=== PATIENT | male | born 1960 | race Caucasian/White ===

== ENCOUNTER 2018-09-07 08:19 | Emergency (ER) | payer OTHER ==
[~2018-09-07] VITALS: Ht 172.7 cm; Wt 93.2 kg
[~2018-09-07 08:19] MED LIST: BIMA01SOL OU; OXYC-141 PO; PERC5TAB12 PO
[2018-09-07] MEDS ORDERED: XALA0.007 OU (08:28)
[2018-09-07] MEDS ORDERED: TIMO0.5S29 OU (08:28)
[2018-09-07] MEDS ORDERED: OXYMETAZOLINE NASAL SPRAY (AFRIN) ONE (08:30)
[2018-09-07] MEDS ORDERED: BACI500O8 TOP (09:59)
[2018-09-07 10:10] VITALS: BP 127/81
== END 2018-09-07 10:13 | disposition home or self-care (01) ==
LOC: M ED 08:19 → EDBD 08:19 → M ED 10:13
DX: R04.0 Epistaxis (principal); I10 Essential (primary) hypertension; Z88.0 Allergy status to penicillin; Z79.899 Other long term (current) drug therapy

== ENCOUNTER 2018-09-07 15:59 | Emergency (ER) | payer OTHER ==
[~2018-09-07] VITALS: Ht 172.7 cm; Wt 93.2 kg
[~2018-09-07 15:59] MED LIST changes: +BACI500O8 TOP; +TIMO0.5S29 OU; +XALA0.007 OU
[2018-09-07] MEDS ORDERED: TRANEXAMIC ACID 100 MG/ML 10ML VIAL IV ONE (16:15)
[2018-09-07 17:34] LABS: HEMATOCRIT 39.6 % (42.0-52.0); HEMOGLOBIN 13.5 g/dl (13.5-17.5); MEAN CORPUSCULAR HEMOGLOBIN 30.5 pg (27.0-33.0); MEAN CORPUSCULAR HGB CONC 34.1 g/dl (32.0-36.5); MEAN CORPUSCULAR VOLUME 89.6 fl (80.0-96.0); PLATELET COUNT, AUTOMATED 269 10^3/uL (150-450); RED BLOOD COUNT 4.42 10^6/uL (4.30-6.10); WHITE BLOOD COUNT 10.9 10^3/uL (4.0-10.0)
[2018-09-07] MEDS ORDERED: ACETAMINOPHEN 325 MG TAB PO ONE (19:00)
[2018-09-07 19:14] VITALS: BP 134/90
== END 2018-09-07 19:28 | disposition home or self-care (01) ==
LOC: M ED 15:59 → EDBD 15:59 → M ED 19:28
DX: R04.0 Epistaxis (principal); I10 Essential (primary) hypertension; Z88.0 Allergy status to penicillin; Z79.899 Other long term (current) drug therapy

== ENCOUNTER 2020-07-08 11:36 | Emergency (ER) | payer OTHER ==
[~2020-07-08] VITALS: Ht 172.7 cm; Wt 96.0 kg
--- NOTE | 2020-07-08 12:17 | REP ---
INDICATION: CHEST PAIN. COMPARISON: None. TECHNIQUE: AP portable seated chest FINDINGS: Lungs show some mild hyperinflation. Right lateral lung base shows some mild pleural thickening or fluid. There is some linear fibrotic change in the right lateral base. No dense consolidation with air bronchograms. The left lung was clear and without effusion. The heart, mediastinal and hilar contours are normal. The aorta and airway are intact. There is no free air under the diaphragm. Patient has undergone a prior ORIF of proximal right humeral fracture with plate and numerous screws in the proximal humeral shaft and head. IMPRESSION: Some right lateral inferior chest wall pleural thickening or fluid with some fibrotic changes in the right lateral base. No dense consolidation in the remainder of the right lung and the entire left lung clear without left effusion <Electronically signed by Arun Owens > 07/08/20 0473
--- NOTE | 2020-07-08 12:51 | REP ---
INDICATION: dizziness. COMPARISON: None. TECHNIQUE: Helical scanning is acquired. 5 mm axial images were reformatted. Coronal MPR images were generated. FINDINGS: Bone window settings demonstrate an intact bony calvarium. There is no evidence of skull fracture or incidental bony calvarial lesion. The visualized paranasal sinuses appear clear. No intraorbital abnormality is seen. On soft tissue window setting images; the lateral, third, and fourth ventricles are normal in size and position. Enamorado-white differentiation pattern is normal above and below the tentorium. There are is no evidence of intracranial hemorrhage. No mass, edema, infarction, or midline shift is seen. No extra-axial fluid collection is appreciated. Vascular calcification is noted in the distal vertebral and distal internal carotid arteries bilaterally. IMPRESSION: Vascular calcification noted. Otherwise negative CT study of the brain without contrast.. <Electronically signed by Jose M Su > 07/08/20 [id number]
[2020-07-08 13:31] LABS: BASO % 0.5 % (0.0-1.0); EOS # 0.1 10^3/uL (0.0-0.5); EOS % 1.7 % (0.0-3.0); HEMATOCRIT 46.8 % (42.0-52.0); HEMOGLOBIN 15.7 g/dl (13.5-17.5); MEAN CORPUSCULAR HEMOGLOBIN 29.7 pg (27.0-33.0); MEAN CORPUSCULAR HGB CONC 33.5 g/dl (32.0-36.5); MEAN CORPUSCULAR VOLUME 88.6 fl (80.0-96.0); MONO # 0.6 10^3/uL (0.0-0.8); MONO % 6.8 % (0.0-5.0); NEUTROPHILS # 5.3 10^3/uL (1.5-8.5); NEUTROPHILS % 65.6 % (36.0-66.0); PLATELET COUNT, AUTOMATED 253 10^3/uL (150-450); RED BLOOD COUNT 5.28 10^6/uL (4.30-6.10); WHITE BLOOD COUNT 8.1 10^3/uL (4.0-10.0)
[2020-07-08 14:05] LABS: ALBUMIN 4.3 GM/DL (3.2-5.2); BILIRUBIN,DIRECT 0.1 MG/DL (0.0-0.2); BILIRUBIN,TOTAL 0.9 MG/DL (0.2-1.0); THYROID STIMULATING HORMONE 1.49 uIU/ML (0.358-3.740)
[2020-07-08] MEDS ORDERED: ISOVUE-370 76% 100ML VIAL As Ordered ONE (15:57)
--- NOTE | 2020-07-08 17:31 | REPVR ---
PROCEDURE INFORMATION: Exam: CT Angiography Chest With Contrast Exam date and time: 07/08/2020 3:53 PM Age: 59 years old Clinical indication: Other: R/O pe TECHNIQUE: Imaging protocol: Computed tomographic angiography of the chest with intravenous contrast. Axial, coronal and sagittal reformatted images were created and reviewed. 3D rendering (Not supervised by radiologist): MIP and/or 3D reconstructed images were created by the technologist. Radiation optimization: All CT scans at this facility use at least one of these dose optimization techniques: automated exposure control; mA and/or kV adjustment per patient size (includes targeted exams where dose is matched to clinical indication); or iterative reconstruction. Contrast material: ISOVUE 370; Contrast volume: 75 ml; Contrast route: INTRAVENOUS (IV); COMPARISON: [place] PORTABLE CHEST X-RAY 07/08/2020 11:55 AM FINDINGS: Pulmonary arteries: Contrast opacification satisfactory. No intraluminal filling defect. Aorta: Unremarkable. No aneurysm or dissection. Lungs: Mild right apical paraseptal emphysematous change. Mild central peribronchial thickening, suggestive of airway inflammation. Linear/discoid stranding and groundglass at the lung bases, likely due to atelectasis and/or scarring. No consolidation. Calcified granuloma in the lingula. Pleural space: Unremarkable. No pneumothorax. No pleural effusion. Heart: Unremarkable. No cardiomegaly. No pericardial effusion. Lymph nodes: No pathologically enlarged lymph nodes. Bones/joints: No acute osseous abnormality. Osteopenia. Degenerative changes. Soft tissues: Unremarkable. IMPRESSION: 1. No CT evidence of pulmonary embolism. 2. Additional findings, as above. Electronically signed by: Srinivasa Astudillo On 07/08/2020 17:31:08 PM
[2020-07-08] MEDS ORDERED: LOSARTAN 50MG TABLET PO ONE (18:30)
[2020-07-08] MEDS ORDERED: VALSARTAN 80 MG TAB (DIOVAN) PO ONE (18:30)
[2020-07-08 18:31] VITALS: BP 144/77
[2020-07-08] MEDS ORDERED: VALS1TAB67 PO (18:43)
[2020-07-08 19:21] VITALS: BP 160/85
--- NOTE | 2020-07-09 00:48 | ECGEPIP ---
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
--- NOTE | 2020-07-09 00:57 | ECGEPIP ---
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
--- NOTE | 2020-07-09 01:02 | ECGEPIP ---
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
== END 2020-07-08 19:22 | disposition home or self-care (01) ==
LOC: M ED 11:36
DX: I10 Essential (primary) hypertension (principal); R55 Syncope and collapse; H40.9 Unspecified glaucoma; Z79.899 Other long term (current) drug therapy; Z88.0 Allergy status to penicillin
CPT/HCPCS: 36415; 70450; 71045; 71275; 80047; 80076; 83690; 83880; 84443; 84484; 85025; 93005; 93041; 94760; 99291; Q9967

== ENCOUNTER 2021-02-05 16:16 | Emergency (ER) | payer OTHER ==
[~2021-02-05] VITALS: Ht 172.7 cm; Wt 100.0 kg
[~2021-02-05 16:16] MED LIST changes: +VALS1TAB67 PO
[2021-02-05] MEDS ORDERED: ASPIRIN 81 MG CHEW TABLET PO ONE (16:45)
[2021-02-05 16:47] LABS: BASO # 0.1 10^3/uL (0.0-0.2); BASO % 0.9 % (0.0-1.0); EOS # 0.1 10^3/uL (0.0-0.5); EOS % 1.6 % (0.0-3.0); HEMOGLOBIN 15.3 g/dl (13.5-17.5); LYMPH # 2.8 10^3/uL (1.5-5.0); LYMPH % 31.7 % (24.0-44.0); MEAN CORPUSCULAR HEMOGLOBIN 30.5 pg (27.0-33.0); MEAN CORPUSCULAR VOLUME 89.8 fl (80.0-96.0); MONO # 0.7 10^3/uL (0.0-0.8); MONO % 8.1 % (2.0-8.0); NEUTROPHILS # 5.1 10^3/uL (1.5-8.5); NEUTROPHILS % 57.5 % (36.0-66.0); PLATELET COUNT, AUTOMATED 267 10^3/uL (150-450); RED BLOOD COUNT 5.01 10^6/uL (4.30-6.10); WHITE BLOOD COUNT 8.9 10^3/uL (4.0-10.0)
[2021-02-05] MEDS ORDERED: ISOVUE-370 76% 100ML VIAL As Ordered ONE (16:47)
--- NOTE | 2021-02-05 16:54 | REP ---
INDICATION: CHEST PAIN. COMPARISON: 07/08/2020. TECHNIQUE: Single portable AP view of the chest was performed. FINDINGS: Left lung is unchanged in appearance with no new infiltrate. The right lung again demonstrates moderate interstitial fibrotic change inferiorly. There may be some mild superimposed atelectasis or infiltrate in the right lung base. The heart is normal in size. The mediastinal silhouette is unchanged. There are degenerative changes of the spine. Metallic internal fixation is seen in the proximal right humerus. IMPRESSION: Chronic changes. Possible mild superimposed atelectasis or infiltrate right lung base. <Electronically signed by Yoel Enamorado > 02/05/21 [id number]
--- NOTE | 2021-02-05 17:08 | REP ---
INDICATION: ro pe chest pain COMPARISON: 07/08/2020 the latest prior also CT angiogram TECHNIQUE: CT angiography after the intravenous administration of 75 cc Isovue 370 attention pulmonary arteries. FINDINGS: There is excellent visualization of the pulmonary arterial vasculature. No focal filling defects are present that would be considered consistent with acute pulmonary emboli. There is no mediastinal or hilar adenopathy. There are no pleural or pericardial effusions. The imaged upper abdomen and imaged osseous structures are stable. Evaluation of the lung gallo shows stable chronic changes particularly affecting the right lung with stable curvilinear densities, pleuroparenchymal scarring, and small apical pleural blebs. Once again, there is an incidental calcification in the inferior lingula likely a granuloma possibly a hamartoma. No new abnormal lung field opacities have developed. IMPRESSION: Stable CT examination of the chest as described above. There is no evidence of pulmonary embolism. There is no evidence of acute disease. <Electronically signed by Horacio Rodrigues > 02/05/21 [id number]
[2021-02-05 17:16] LABS: ALT/SGPT 20 U/L (12-78); BILIRUBIN,DIRECT 0.1 MG/DL (0.0-0.2); BILIRUBIN,TOTAL 0.4 MG/DL (0.2-1.0); BLOOD UREA NITROGEN 17 MG/DL (7-18); CALCIUM LEVEL 8.9 MG/DL (8.8-10.2); CARBON DIOXIDE LEVEL 29 MEQ/L (21-32); CHLORIDE LEVEL 107 MEQ/L (98-107); CK-MB VALUE MASS < 1.0 NG/ML (<3.6); CPK CREATINE PHOSPHOKINASE 87 U/L (39-308); FREE T4 0.94 NG/DL (0.76-1.46); GLOMERULAR FILTRATION RATE > 60.0 (>49); GLUCOSE, FASTING 88 MG/DL (70-100); LIPASE 342 U/L (73-393); MB/CK RELATIVE INDEX 1.15 (< OR =4); POTASSIUM SERUM 4.6 MEQ/L (3.5-5.1); SODIUM LEVEL 142 MEQ/L (136-145); TOTAL PROTEIN 7.6 GM/DL (6.4-8.2); TROPONIN I < 0.02 NG/ML (< 0.10)
[2021-02-05] MEDS ORDERED: METOPROLOL TART 25 MG TABLET PO ONE (18:10)
--- NOTE | 2021-02-05 19:55 | ECGEPIP ---
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
[2021-02-05 23:30] VITALS: BP 127/75
--- NOTE | 2021-02-06 08:43 | ECGEPIP ---
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
== END 2021-02-05 23:52 | disposition home or self-care (01) ==
LOC: M ED 16:16
DX: R07.89 Other chest pain (principal); R06.02 Shortness of breath; I10 Essential (primary) hypertension; Z88.0 Allergy status to penicillin
CPT/HCPCS: 36415; 71045; 71275; 80047; 80048; 80076; 82550; 82553; 83690; 84439; 84443; 84484; 85025; 93005; 93041; 94760; 99285; Q9967

== ENCOUNTER 2022-05-01 08:36 | Emergency (ER) | payer OTHER ==
[~2022-05-01] VITALS: Ht 172.7 cm; Wt 99.7 kg
[2022-05-01] MEDS ORDERED: ASPIRIN 81 MG CHEW TABLET PO ONE (09:00)
[2022-05-01] MEDS ORDERED: GI COCKTAIL 50ML BTL(HYOSCYAMINE/MAALOX/LIDOCAINE VISCOUS)(1:3:1) PO ONE (09:00)
[2022-05-01 09:42] LABS: BASO # 0.1 10^3/uL (0.0-0.2); BASO % 0.9 % (0.0-1.0); EOS # 0.1 10^3/uL (0.0-0.5); HEMATOCRIT 41.7 % (42.0-52.0); HEMOGLOBIN 14.6 g/dl (13.5-17.5); LYMPH # 2.1 10^3/uL (1.5-5.0); LYMPH % 30.1 % (24.0-44.0); MEAN CORPUSCULAR HEMOGLOBIN 31.5 pg (27.0-33.0); MEAN CORPUSCULAR VOLUME 90.1 fl (80.0-96.0); MONO # 0.6 10^3/uL (0.0-0.8); NEUTROPHILS % 58.7 % (36.0-66.0); PLATELET COUNT, AUTOMATED 257 10^3/uL (150-450); RED BLOOD COUNT 4.63 10^6/uL (4.30-6.10); WHITE BLOOD COUNT 6.9 10^3/uL (4.0-10.0)
[2022-05-01] MEDS ORDERED: ISOVUE-370 76% 100ML VIAL As Ordered ONE (09:52)
[2022-05-01 09:54] LABS: INR 0.92; PARTIAL THROMBOPLASTIN TIME 28.8 SECONDS (25.9-37.0); PROTHROMBIN TIME 12.8 SECONDS (12.7-14.5)
[2022-05-01] MEDS ORDERED: MORPHINE 2 MG/ML 1ML VIAL IV PRN (09:55)
[2022-05-01 10:15] LABS: CK-MB VALUE MASS < 1.0 NG/ML (<3.6); CPK CREATINE PHOSPHOKINASE 81 U/L (39-308); MB/CK RELATIVE INDEX 1.23 (< OR =4)
[2022-05-01 10:20] LABS: ALBUMIN 4.1 GM/DL (3.2-5.2); ALT/SGPT 21 U/L (12-78); BILIRUBIN,DIRECT 0.2 MG/DL (0.0-0.2); BILIRUBIN,TOTAL 0.7 MG/DL (0.2-1.0); BLOOD UREA NITROGEN 10 MG/DL (7-18); CARBON DIOXIDE LEVEL 23 MEQ/L (21-32); CHLORIDE LEVEL 105 MEQ/L (98-107); CREATININE FOR GFR 1.05 MG/DL (0.70-1.30); FREE T4 1.16 NG/DL (0.76-1.46); GLOMERULAR FILTRATION RATE > 60.0 (>49); GLUCOSE, FASTING 107 MG/DL (70-100); LIPASE 96 U/L (73-393); NT-PRO BNP 62 PG/ML (<125); SODIUM LEVEL 138 MEQ/L (136-145); TOTAL PROTEIN 7.3 GM/DL (6.4-8.2)
[2022-05-01] MEDS ORDERED: ONDANSETRON 4MG 2ML VIAL As Ordered ONE (10:54)
[2022-05-01] MEDS ORDERED: ONDANSETRON 4MG 2ML VIAL IV ONE (10:55)
[2022-05-01 12:27] LABS: MB/CK RELATIVE INDEX 3.66 (< OR =4)
[2022-05-01 12:30] VITALS: BP 169/95
[2022-05-01] MEDS ORDERED: NITROGLYCERIN 2% OINT 1 GM *U/D* PKT TOP ONE (12:30)
[2022-05-01] MEDS ORDERED: HEPARIN SOD (PORCINE) 5000UNITS/ML 1ML VIAL/SYRINGE IV ONE (12:40)
[2022-05-01] MEDS ORDERED: HEPARIN DRIP 25,000 UNITS in IV 1 EA IV SCH (12:40)
[2022-05-01 13:22] LABS: CK-MB VALUE MASS 5.2 NG/ML (<3.6); MB/CK RELATIVE INDEX 5.25 (< OR =4)
[2022-05-01 13:38] VITALS: BP 162/97
== END 2022-05-01 13:41 | disposition short-term general hospital (02) ==
LOC: M ED 08:36
DX: I21.4 Non-ST elevation (NSTEMI) myocardial infarction (principal); I10 Essential (primary) hypertension; E78.5 Hyperlipidemia, unspecified; F41.9 Anxiety disorder, unspecified; Z88.0 Allergy status to penicillin; F17.210 Nicotine dependence, cigarettes, uncomplicated
CPT/HCPCS: 71045; 71275; 80047; 80048; 80076; 82550; 82553; 83690; 83880; 84439; 84443; 84484; 85025; 85610; 85730; 87428; 93005; 93041; 94760; 96365; 96375; 99291; J1644; J2270; J2405; Q9967

== ENCOUNTER 2024-01-17 11:02 | Day surgery (SDC) | payer OTHER ==
[~2024-01-17] VITALS: Ht 172.7 cm; Wt 97.3 kg
[~2024-01-17 11:02] MED LIST changes: +ATOR80TA59 PO; +BAYE81TA10 PO; +BIMA0.036 OU; +METO1TAB87 PO; +RAMI1.258 PO; +REST0.05 OU; +TIMO0.5S20 OU; -TIMO0.5S29 OU
[2024-01-17] MEDS: NS 1,000 ML IV ONE (11:32)
[2024-01-17] MEDS ORDERED: propofoL 200 MG/20 ML VIAL As Ordered ONE (12:49)
[2024-01-17] MEDS ORDERED: LIDOCAINE 2% 100MG/5ML SDV (FOR ANES.) As Ordered ONE (12:49)
[2024-01-17 13:16] VITALS: TEMP 97.2
[2024-01-17 13:33] VITALS: BP 131/89; O2SAT 98
== END 2024-01-17 13:42 | disposition home or self-care (01) ==
LOC: M OPP 11:02
PROVIDERS: ATTEND Internal Medicine Gastroenterology
DX: Z12.11 Encounter for screening for malignant neoplasm of colon (principal); Z12.12 Encounter for screening for malignant neoplasm of rectum; K64.0 First degree hemorrhoids; I25.10 Atherosclerotic heart disease of native coronary artery without angina pectoris; I25.2 Old myocardial infarction; I10 Essential (primary) hypertension; E78.00 Pure hypercholesterolemia, unspecified; Z79.899 Other long term (current) drug therapy; Z79.82 Long term (current) use of aspirin; Z88.0 Allergy status to penicillin; Z95.1 Presence of aortocoronary bypass graft; Z90.49 Acquired absence of other specified parts of digestive tract; Z87.891 Personal history of nicotine dependence

== ENCOUNTER 2024-05-02 08:56 | Emergency (ER) | payer OTHER ==
[~2024-05-02] VITALS: Ht 172.7 cm; Wt 100.8 kg
[2024-05-02 08:58] VITALS: TEMP 97
[2024-05-02] MEDS ORDERED: DORZ2SOL5 (09:08)
[2024-05-02] MEDS ORDERED: BIMA0.036 (09:08)
[2024-05-02 11:10] LABS: CK-MB VALUE MASS < 1.0 NG/ML (<3.6)
[2024-05-02 11:12] LABS: BLOOD UREA NITROGEN 7 MG/DL (9-23); CALCIUM LEVEL 9.5 MG/DL (8.3-10.6); CARBON DIOXIDE LEVEL 24 MMOL/L (20-31); CHLORIDE LEVEL 111 MMOL/L (98-107); CREATININE FOR GFR 0.87 MG/DL (0.70-1.30); GLOMERULAR FILTRATION RATE > 60.0 (>49); GLUCOSE, FASTING 107 MG/DL (74-106); POTASSIUM SERUM 4.6 MMOL/L (3.5-5.1); SODIUM LEVEL 138 MMOL/L (136-145)
[2024-05-02 11:15] LABS: CPK CREATINE PHOSPHOKINASE 77 U/L (46-171); MB/CK RELATIVE INDEX 1.29 (< OR =4)
[2024-05-02 11:57] LABS: BASO # 0.1 10^3/uL (0.0-0.2); BASO % 0.6 % (0.0-1.0); EOS # 0.2 10^3/uL (0.0-0.5); EOS % 1.8 % (0.0-3.0); HEMATOCRIT 42.4 % (42.0-52.0); HEMOGLOBIN 14.7 g/dl (13.5-17.5); LYMPH # 1.7 10^3/uL (1.5-5.0); LYMPH % 19.1 % (24.0-44.0); MEAN CORPUSCULAR HEMOGLOBIN 31.5 pg (27.0-33.0); MEAN CORPUSCULAR HGB CONC 34.7 g/dl (32.0-36.5); MEAN CORPUSCULAR VOLUME 90.8 fl (80.0-96.0); MONO # 0.5 10^3/uL (0.0-0.8); MONO % 5.5 % (2.0-8.0); NEUTROPHILS # 6.4 10^3/uL (1.5-8.5); NEUTROPHILS % 72.8 % (36.0-66.0); PLATELET COUNT, AUTOMATED 262 10^3/uL (150-450); RED BLOOD COUNT 4.67 10^6/uL (4.30-6.10); WHITE BLOOD COUNT 8.9 10^3/uL (4.0-10.0)
[2024-05-02 12:00] VITALS: BP 137/74; O2SAT 98
== END 2024-05-02 12:19 | disposition home or self-care (01) ==
LOC: M ED 08:56
DX: I10 Essential (primary) hypertension (principal); M54.2 Cervicalgia; I25.10 Atherosclerotic heart disease of native coronary artery without angina pectoris; Z95.1 Presence of aortocoronary bypass graft; Z79.82 Long term (current) use of aspirin; Z79.899 Other long term (current) drug therapy; Z88.0 Allergy status to penicillin

== ENCOUNTER → 2024-07-05 | Outpatient (CLI) | payer OTHER ==
[~2024-07-05] MED LIST changes: +BIMA0.036; +DORZ2SOL5
== END ==
LOC: M PLALAB 13:54 → M PLAIMG 13:54
PROVIDERS: ATTEND Family Medicine
DX: M54.2 Cervicalgia (principal)

== ENCOUNTER → 2024-09-05 | Outpatient (CLI) | payer OTHER ==
[~2024-09-05] MED LIST changes: +ISOVUE-370 76% 100ML VIAL As Ordered ONE
== END ==
LOC: M RAD 09:55
PROVIDERS: ATTEND Family Medicine
DX: K85.90 Acute pancreatitis without necrosis or infection, unspecified (principal)

== ENCOUNTER → 2024-12-21 | Outpatient (CLI) | payer OTHER ==
[~2024-12-21] MED LIST changes: -ISOVUE-370 76% 100ML VIAL As Ordered ONE
== END ==
LOC: M RAD 10:11
PROVIDERS: ATTEND Family Medicine
DX: K85.90 Acute pancreatitis without necrosis or infection, unspecified (principal)

== ENCOUNTER → 2025-03-01 | Outpatient (CLI) | payer OTHER | LOC: M PLARAD 12:40 | PROVIDERS: ATTEND Family Medicine | DX: M47.816 Spondylosis without myelopathy or radiculopathy, lumbar region (principal); M51.26 Other intervertebral disc displacement, lumbar region ==